=== PATIENT | female | born 2000 | race Caucasian/White ===

== ENCOUNTER 2021-12-01 14:09 | Outpatient (RCR) | payer OTHER | END 2021-12-17 | disposition home or self-care (01) | LOC: WSOH | DX: S83.91XA Sprain of unspecified site of right knee, initial encounter (principal); Y99.0 Civilian activity done for income or pay; K58.9 Irritable bowel syndrome, unspecified; R01.1 Cardiac murmur, unspecified; Z98.890 Other specified postprocedural states | CPT/HCPCS: 24774; L1810 ==

== ENCOUNTER 2021-12-25 09:54 | Outpatient (RCR) | payer OTHER | END 2022-01-17 | disposition home or self-care (01) | LOC: WSOH | DX: S83.91XD Sprain of unspecified site of right knee, subsequent encounter (principal); Y99.0 Civilian activity done for income or pay; K58.9 Irritable bowel syndrome, unspecified; R01.1 Cardiac murmur, unspecified ==

== ENCOUNTER 2022-01-06 11:46 | Emergency (ER) | payer OTHER ==
[~2022-01-06] VITALS: Ht 157.5 cm; Wt 72.7 kg
[2022-01-06 12:43] LABS: COLLECTION METHOD CLEAN CATCH
[2022-01-06 12:58] LABS: PH 6 (5-8); SQUAMOUS EPITHELIAL 0-2 /hpf (0-10); URINE APPEARANCE Hazy (CLEAR/HAZY); URINE BACTERIA Rare /hpf (NONE SEEN); URINE COLOR Red (YELLOW); URINE GLUCOSE Negative (NEGATIVE); URINE KETONE Negative (NEGATIVE); URINE PROTEIN(semi-quant) Negative (NEGATIVE); URINE RBC >50 /hpf (0-2)
[2022-01-06 12:59] LABS: URINE BLOOD 3+ (NEGATIVE); URINE NITRATE Negative (NEGATIVE); URINE UROBILINOGEN 0.2 (NEGATIVE)
[2022-01-06 13:16] LABS: BASO % 0.6 % (0.0-2.0); EOS # 0.2 K/mm3 (0.0-0.7); EOS % 3.3 % (0.0-4.0); GRAN # 3.1 K/mm3 (1.4-6.5); GRAN % 47.4 % (42.2-75.2); HEMOGLOBIN 11.1 g/dl (12.5-16.0); LYMPH # 2.7 K/mm3 (1.2-3.4); LYMPH % 42.4 % (20.0-51.0); MEAN CELL VOLUME 78 fl (80.0-100.0); MEAN CORPUSCULAR HEMOGLOBIN 24 pg (27-31); MEAN CORPUSCULAR HGB CONC 30 g/dl (33.0-37.0); MEAN PLATELET VOLUME 12.1 fl (7.4-10.4); MONO # 0.4 K/mm3 (0.1-0.6); MONO % 6.1 % (1.7-9.3); PLATELET COUNT 313 K/mm3 (130-400); REDCELL DISTRIBUTION WIDTH-CV 14.6 % (11.5-14.5)
[2022-01-06 13:19] LABS: HEMATOCRIT 36.6 % (37.0-47.0)
[2022-01-06 13:28] LABS: ALBUMIN 4.1 gm/dL (3.5-5.0); BILIRUBIN,TOTAL 0.6 mg/dL (0.2-1.2); C-REACTIVE PROTEIN 0.1 mg/dL (0.00-0.50); CALCIUM 9.8 mg/dL (8.4-10.2); CREATININE, serum 0.72 mg/dL (0.57-1.11); POTASSIUM 3.9 mmol/L (3.5-4.5); TOTAL PROTEIN 7.4 gm/dL (6.2-8.1)
[2022-01-06 15:24] VITALS: BP 99/56; PULSE 73; TEMP 98.1
== END 2022-01-06 15:24 | disposition home or self-care (01) ==
LOC: COL.ER 11:46
PROVIDERS: Nurse Practitioner
DX: N93.9 Abnormal uterine and vaginal bleeding, unspecified (principal)
CPT/HCPCS: J1885; J2405; J7030